=== PATIENT | male | born 1965 ===

== ENCOUNTER 2017-07-17 16:56 | Emergency (ER) | payer BC, OTHER ==
[2017-07-17 17:00] VITALS: RESP 18; TEMP 97.4; O2SAT 100
--- NOTE | 2017-07-17 17:41 | RAD ---
PROCEDURE: Left Ankle Radiographs. HISTORY: Injury. COMPARISON: Correlation made with concurrent radiographs of the left foot FINDINGS: BONES: There is a minimally displaced transverse fracture extending through the medial malleolus. . . Small plantar and posterior calcaneal enthesophyte formation former slightly larger than latter. JOINTS: Mild degenerative changes of the tibiotalar joint with small osteophyte formation. There is a tiny corticated bony density within the anterior margin of the tibiotalar joint likely representing some old posttraumatic mineralization. SOFT TISSUES: Mild soft tissue swelling overlying the lateral malleolus OTHER FINDINGS: None. IMPRESSION: Minimally displaced transverse fracture extending through the medial malleolus with overlying soft tissue swelling. Mild DJD as described.
--- NOTE | 2017-07-17 17:43 | RAD ---
PROCEDURE: Left Foot Radiographs. HISTORY: injury COMPARISON: Correlation made with concurrent radiographs left ankle FINDINGS: BONES: Previously noted transverse fracture extending through the medial malleolus is not appreciated on this exam. Please refer to concurrent radiographs of the ankle and corresponding report. There is overgrowth -productive changes of the head of the 1st metatarsal and mild DJD involving sesamoid bones. . The plantar and posterior calcaneal enthesophyte is again noted JOINTS: Mild degenerative changes 1st MTP joint. Mild DJD tibiotalar articulation SOFT TISSUES: Mild soft tissue swelling overlying the medial malleolus is less well seen compared to the ankle radiographs. OTHER FINDINGS: None. IMPRESSION: Previously noted transverse fracture extending through the medial malleolus less well seen. . See above discussion for additional details and findings.
--- NOTE | 2017-07-17 18:03 | C.PDOC ---
History Of Present Illness 51 y/o male c/o left ankle pain after twisting his left ankle 2 weeks ago. Patient denies weakness or numbness to the area. Time Seen by Provider: 07/17/17 17:04 Chief Complaint (Nursing): Lower Extremity Problem/Injury History Per: Patient History/Exam Limitations: no limitations Onset/Duration Of Symptoms: Days Current Symptoms Are (Timing): Still Present Severity: Moderate Recent travel outside of the [place]: No Additional History Per: Patient Past Medical History Reviewed: Historical Data, Nursing Documentation, Vital Signs Vital Signs: Last Vital Signs Temp 97.4 F L 07/17/17 17:00 Pulse 95 H 07/17/17 17:00 Resp 18 07/17/17 17:00 BP 166/83 H 07/17/17 17:00 Pulse Ox 100 07/17/17 18:04 - Medical History PMH: HTN, Hyperlipidemia Family History: States: Unknown Family Hx - Social History Hx Alcohol Use: Yes Hx Substance Use: No - Immunization History Hx Tetanus Toxoid Vaccination: No Hx Influenza Vaccination: No Hx Pneumococcal Vaccination: No Review Of Systems Musculoskeletal: Positive for: Foot Pain (Left ankle pain) Neurological: Negative for: Weakness, Numbness Physical Exam - Physical Exam Appears: Non-toxic, No Acute Distress Skin: Warm, Dry Head: Atraumatic, Normacephalic Extremity: No Normal ROM (Decrease ROM), Tenderness (Left ankle), Capillary Refill (<2secs), No Deformity, Swelling (Left ankle) Pulses: Left Dorsalis Pedis: Normal, Right Dorsalis Pedis: Normal Neurological/Psych: Oriented x3, Normal Motor, Normal Sensation Gait: Steady (walking with a limp) ED Course And Treatment O2 Sat by Pulse Oximetry: 100 Pulse Ox Interpretation: Normal - Other Rad XRAY left foot X-Ray: Interpreted by Me, Viewed By Me Interpretation: PROCEDURE: Left Foot Radiographs. HISTORY: injury. COMPARISON: Correlation made with concurrent radiographs left ankle. FINDINGS : BONES: Previously noted transverse fracture extending through the medial malleolus is not appreciated on this exam. Please refer to concurrent radiographs of the ankle and corresponding report. There is overgrowth - productive changes of the head of the 1st metatarsal and mild DJD involving sesamoid bones. . The plantar and posterior calcaneal enthesophyte is again noted. JOINTS: Mild degenerative changes 1st MTP joint. Mild DJD tibiotalar articulation. SOFT TISSUES: Mild soft tissue swelling overlying the medial malleolus is less well seen compared to the ankle radiographs. OTHER FINDINGS: None. IMPRESSION: Previously noted transverse fracture extending through the medial malleolus less well seen. . See above discussion for additional details and findings. XRAY Left ankle X-Ray: Interpreted by Me, Viewed By Me Interpretation: PROCEDURE: Left Ankle Radiographs. HISTORY: Injury. COMPARISON: Correlation made with concurrent radiographs of the left foot. FINDINGS: BONES: There is a minimally displaced transverse fracture extending through the medial malleolus. . . Small plantar and posterior calcaneal enthesophyte formation former slightly larger than latter. JOINTS: Mild degenerative changes of the tibiotalar joint with small osteophyte formation. There is a tiny corticated bony density within the anterior margin of the tibiotalar joint likely representing some old posttraumatic mineralization. SOFT TISSUES: Mild soft tissue swelling overlying the lateral malleolus. OTHER FINDINGS: None. IMPRESSION: Minimally displaced transverse fracture extending through the medial malleolus with overlying soft tissue swelling. Mild DJD as described. Disposition - Disposition Referrals: Masoud Casillas MD [Staff Provider] - [facility] [Outside] [facility] [place] [Outside] Disposition: HOME/ ROUTINE Disposition Time: 18:16 Condition: STABLE Additional Instructions: Follow up with Orthopedist within 1-2 days. Return to ED if feel worse. Prescriptions: traMADol [Ultram] 50 mg PO Q6 #30 tab Instructions: Ankle Fracture (ED) Forms: [employer] (Yakut) Print Language: SLOVENIAN - Clinical Impression Clinical Impression: Ankle fracture, left - Scribe Statement The provider has reviewed the documentation as recorded by the Gunjaniblynda canela All medical record entries made by the Gunjaniblynda were at my direction and personally dictated by me. I have reviewed the chart and agree that the record accurately reflects my personal performance of the history, physical exam, medical decision making, and the department course for this patient. I have also personally directed, reviewed, and agree with the discharge instructions and disposition.
[2017-07-17 18:42] VITALS: BP 158/81; PULSE 90
== END 2017-07-17 18:42 | disposition home or self-care (01) ==
LOC: C.ER 16:56
DX: S82.52XA Displaced fracture of medial malleolus of left tibia, initial encounter for closed fracture (principal); X50.1XXA Overexertion from prolonged static or awkward postures, initial encounter; Y92.89 Other specified places as the place of occurrence of the external cause

== ENCOUNTER 2017-07-23 10:23 | Day surgery (SDC) | payer OTHER ==
[2017-07-22 08:46] VITALS: BMI 29.8
[2017-07-23] MEDS ORDERED: Propofol 10 mg/ml Inj (20 ML) ONE (12:37)
[2017-07-23] MEDS ORDERED: Midazolam 2 MG/2 ML VIAL ONE (12:37)
[2017-07-23] MEDS ORDERED: Rocuronium 10 mg/ml (5 ml) ONE (12:38)
[2017-07-23] MEDS ORDERED: Lidocaine Hydrochloride 5 ML INJ ONE (12:38)
[2017-07-23] MEDS ORDERED: Lactated Ringer's 1,000 ML IV ONE ×2 (12:40→13:33)
[2017-07-23] MEDS ORDERED: ceFAZolin IV 2 gm in Dextrose 2 GM/50 ML BAG IVPB ONE (12:49)
[2017-07-23] MEDS ORDERED: Bupivacaine HCl 0.5% PF (10 ml) Inj ONE (12:50)
[2017-07-23] MEDS ORDERED: Neostigmine Methylsulfate 3mg/3ml Syringe IV ONE (13:36)
[2017-07-23] MEDS ORDERED: Oxycodone/Acetaminophen 5/325 mg Tab PO PRN ×2 (13:50)
--- NOTE | 2017-07-23 13:52 | PCM.SURG1 ---
Surgeon's Initial Post Op Note - Surgeon's Notes Surgeon: Ramses Financial Agent: Tomer PGY 3, Adal PGY 2 Type of Anesthesia: General LMA Pre-Operative Diagnosis: left Medial malleolar fracture Operative Findings: see dictation Post-Operative Diagnosis: same Operation Performed: left Medial mall ORIF Specimen/Specimens Removed: None Estimated Blood Loss: EBL {In ML}: 5 Blood Products Given: N/A Drains Used: No Drains Post-Op Condition: Good Date of Surgery/Procedure: 07/23/17 Time of Surgery/Procedure: 13:52
[2017-07-23] MEDS ORDERED: Lactated Ringer's 1,000 ML IV SCH (14:15)
[2017-07-23] MEDS: HYDROmorphone 0.5 mg/0.5 ml ISec IVP PRN ×2 (14:21→14:39)
[2017-07-23] MEDS ORDERED: HYDROmorphone 0.5 mg/0.5 ml ISec ONE (14:21)
[2017-07-23 14:30] VITALS: O2SAT 100
--- NOTE | 2017-07-23 15:11 | RAD ---
PROCEDURE: Left Ankle Radiographs. HISTORY: left Medial mall ORIF COMPARISON: Left tibia/ fibula radiographs dated 07/22/2017 FINDINGS: There has been interval screw fixation of the previously described medial malleolar fracture. Osseous components and orthopedic hardware are in good alignment. No acute fracture is visualized. No other significant changes are evident. IMPRESSION: Status post ORIF of the medial malleolar fracture.
--- NOTE | 2017-07-23 15:30 | RAD ---
PROCEDURE: Intraoperative fluoroscopy HISTORY: LT. ANKLE FX. COMPARISON: Not available TECHNIQUE: Intraoperative fluoroscopy was provided for ORIF of medial malleolar fracture. Total time of fluoroscopy was 45.8 seconds. FINDINGS: Multiple fluoroscopic spot films are submitted. Films are on file for review. IMPRESSION: Fluoroscopy provided.
[2017-07-23 16:42] VITALS: BP 92/62; PULSE 67; RESP 18; TEMP 98.7
--- NOTE | 2017-07-24 23:39 | PCM.OP ---
Operative Report - Operative Report Date of Surgery/Procedure: 07/23/17 Time of Surgery/Procedure: 13:40 Surgeon: Dr. Aranza Pearce DPM Sign Writer Hand: Victor Manuel Jeff PGY-3, Khari Galeas PGY-2 Anesthesia/Sedation: Dr. Moran Pre-Operative Diagnosis: Left ankle medial malleolus fracture Post-Operative Diagnosis: Left ankle medial malleolus fracture Indication for Surgery: The patient is a 51 year-old M with the above diagnoses. Patient injured his left ankle couple weeks ago and required to fix the left ankle with surgical intervention. The patient signed the consent after careful explanation of risks, benefits, complication and alternatives for surgical procedure. No guarantees were given nor implied. 2 grams Ancef IV were given to the pt hour prior to the procedure. NPO status was confirmed prior to taking pt to the OR. Operative Findings: Preparation: The patient was brought to the operating room and placed on the operating room table in supine position. A well-padded pneumatic Thigh tourniquet was placed to the patient's Left Thigh. Once general anesthesia was achieved, the L Lower extremity was then prepped and draped in usual sterile manner. Esmarch was utilized to exsanguinate the patient's Left lower extremity. Pneumatic Thigh tourniquet was then inflated to 350 mmHg and procedure began. Procedure/Operation Description: Procedure:Left ankle medial malleolus open reduction and internal fixation. Attention was re-directed to the medial aspect of the distal tibia of the left lower extremity. Under the fluoroscopy, the tip of the distal medial malleolus was confirmed and there was a approximately 4mm gap at the fracture site. Utilizing #15 blade, an approximately 1 cm stab incision was made at the distal tip of the medial malleolus. At this time, the incision was carried deep using sharp and blunt dissection, taking care to retract all vital neurovascular structures. All bleeders were cauterized and ligated as necessary. Next, Utilizing 0.062 k wire was driven to the center of the medial malleolus along the bisect the longitudinal line of the medial malleolus. Next, 3.5 mm drill bit was used over the k wire and a Synthes 4.5 x 48 mm partial threaded screw was inserted. Next, The compression was confirmed at the fracture site under the fluoroscopy and the bone alignment was excellent. The surgical site was flushed with copious amount of normal sterile saline. The skin was reapproximated with # 3-0 Prolene. 20 ml of 0.5% Marcaine plain was infiltrated at the surgical site. The left ankle was dressed with xeroform, 4x4, Kerlix and posterior split was applied. Estimated Blood Loss: 1cc Complications: None Discharge & Condition: Postoperative Condition: The patient tolerated the anesthesia and procedure well and was escorted to the recovery room with vital signs stable and neurovascular status intact to the left lower extremity. This patient will follow up with at the [facility] [place] podiatry clinic.
== END 2017-07-23 17:35 | disposition home or self-care (01) ==
LOC: C.SDS 10:23
PROVIDERS: ATTEND Podiatrist Foot & Ankle Surgery
DX: S82.52XA Displaced fracture of medial malleolus of left tibia, initial encounter for closed fracture (principal); X58.XXXA Exposure to other specified factors, initial encounter; E11.9 Type 2 diabetes mellitus without complications
CPT/HCPCS: 27766; 73600; 76000; 82948; 97116; 97161; G8978; G8979; G8980; J0690; J1170; J2250; J2704; J2710; J3010; J7120